=== PATIENT | male | born 1940 | race Caucasian/White ===

== ENCOUNTER → 2016-09-20 | Day surgery (SDC) | payer MEDICARE, OTHER ==
[~2016-09-20] MED LIST: ATORVASTATIN CA40 MG PO; CALCIUM 600+D1 EACH PO; CERTAGEN PO; CINNAMON ALPHA1 EACH PO; CITRACAL200 MG; CO Q-10150 MG PO; ESTER C PO; FIBER625 M2 PO; FIBERCON625 MG PO; FISH OIL 1,0001 CAP PO; FISH OIL 1,2001 EAC1 PO; GLUCOSAMINE &1 EAC1 PO; LIPITOR PO; LISINOPRIL5 MG PO; MULTI VITAMIN1 EACH PO; NUTRIFERON; SAW PALMETTO; TURMERIC500 M1 PO; VISION VITAMIN1 EACH PO; VIT B-12 PO; VITAMIN B122500 MCG PO; VITAMIN C1000 M2 PO; VITAMIN D2000 UNIT PO; VITAMIN D31000 UNI1 PO
--- NOTE | ~2016-09-20 | OR ---
Unit #: [id number] #: [id number] Patient: DANIEL EUGENE [id number] [address] [id number] MR#: [id number] NAME: DANIEL EUGENE. ROOM: Date of Procedure: 09/20/2016 Admission Date: 09/20/2016 Surgeon: Adria Wang III, M.D. : 1940 Attending Physician: Adria Wang III, M.D. Primary Care Physician: Anthony Alexander M.D. OPERATIVE REPORT PREOPERATIVE DIAGNOSIS History of polyps. POSTOPERATIVE DIAGNOSES Polyp at 35 cm and right-sided diverticular disease (mild). PROCEDURE PERFORMED Colonoscopy to cecum with snare polypectomy x1. ANESTHESIA 5 mg of Versed and 50 mg of Demerol. SPECIMENS Polyp from 35 cm was snared and sent to Pathology. COMPLICATIONS None apparent. INDICATIONS FOR PROCEDURE This is a 76-year-old gentleman, who has a personal history of colon polyps. He has undergone three prior colonoscopies. His last colonoscopy was in 2013. He was noted to have a tubular adenomatous polyp. He is here today for surveillance. DESCRIPTION OF PROCEDURE After consent was obtained, the patient was brought to the endoscopy suite and placed in the left lateral decubitus position. We titrated the above sedation. I performed a rectal exam and did not feel any masses. The scope was placed within the rectal vault. Air was insufflated. I navigated the scope all the way to the cecum without any difficulty. He had normal mucosa. He had some mild right-sided diverticular disease. He had a solitary adenomatous appearing polyp that was about 5 mm in diameter. This was snared, cauterized, captured, and sent to Pathology. I did not see any other masses. I specifically looked at his prior colonoscopy reports and did not see any polyps formations at any of his prior biopsy sites. The scope was retroflexed within the rectum. No other masses were seen. The scope was then carefully withdrawn. The patient tolerated the procedure without any problems. I will have him call my office early next week for biopsy results. Dictated by... Unit #: [id number] #: [id number] Patient: DANIEL EUGENE Vincyanique Wang III, M.D. VCL/jonatan TD: 09/20/2016 12:50 JOB #: [id number] CC: . OPERATIVE REPORT Page 1 of 1 X Adria Wang III, MD X PROCEDURE OPERATIVE NOTE
== END | disposition home or self-care (01) ==
LOC: COPS 06:29
DX: Z12.11 Encounter for screening for malignant neoplasm of colon (principal); D12.6 Benign neoplasm of colon, unspecified; K57.30 Diverticulosis of large intestine without perforation or abscess without bleeding; F17.290 Nicotine dependence, other tobacco product, uncomplicated; Z86.010 Personal history of colon polyps; Z79.899 Other long term (current) drug therapy; Z98.890 Other specified postprocedural states
CPT/HCPCS: 88305; J2175; J2250